=== PATIENT | female | born 1965 | race Caucasian/White ===

== ENCOUNTER 2017-04-06 14:50 | Emergency (ER) | payer MEDICAID ==
[~2017-04-06] VITALS: Ht 162.6 cm; Wt 83.5 kg
--- NOTE | 2017-04-06 17:22 | NUR ---
MSE DONE BY DR MARIAMA DUNCAN 2. PATIENT A & O X4.
--- NOTE | 2017-04-06 17:32 | NUR ---
Patient discharged to home in stable conditon. Written and verbal after care instructions given. Patient verbalizes understanding of instructions. Will follow up with DR Banda 04/07/17.
[2017-04-06 17:36] VITALS: BP 115/66
== END 2017-04-06 17:38 | disposition home or self-care (01) ==
LOC: ER 14:51
DX: L03.011 Cellulitis of right finger (principal); I10 Essential (primary) hypertension; E11.9 Type 2 diabetes mellitus without complications; E78.00 Pure hypercholesterolemia, unspecified; E03.9 Hypothyroidism, unspecified
CPT/HCPCS: 82962; 99283; A4663

== ENCOUNTER 2017-04-07 09:39 | Emergency (ER) | payer MEDICAID ==
[~2017-04-07] VITALS: Ht 175.3 cm; Wt 72.6 kg
--- NOTE | 2017-04-07 09:58 | NUR ---
DR VERNON AT THE BEDSIDE FOR EVAL AND EXAM.
[2017-04-07 10:15] VITALS: BP 119/71
== END 2017-04-07 10:16 | disposition home or self-care (01) ==
LOC: ER 09:40
DX: L03.113 Cellulitis of right upper limb (principal); I10 Essential (primary) hypertension; E03.9 Hypothyroidism, unspecified; E11.9 Type 2 diabetes mellitus without complications
CPT/HCPCS: A4663